=== PATIENT | female | born 1945 | race Caucasian/White ===

== ENCOUNTER 2024-01-21 06:52 | Inpatient (IN) ==
--- NOTE | 2023-12-23 11:21 | PAT Medication Instructions ---
Medication Instructions Date of Service December 23, 2023 Home Medications Medication Instructions Recorded Flutter Valve #1 ea 02/14/21 ProAir HFA 90 mcg/actuation 2 puff inhalation Q4H PRN 04/27/23 aerosol inhaler (albuterol sulfate) shortness of breath or wheezing #25.5 grams tiotropium bromide 2.5 2 puff inhalation QPM #4 grams 04/27/23 mcg/actuation mist for inhalation (Spiriva Respimat) cholecalciferol (vitamin D3) 25 mcg (1,000 unit) capsule 1,000 units PO QPM levothyroxine 88 mcg tablet (Synthroid) 88 mcg PO QAM lorazepam 1 mg tablet (Ativan) 1 mg PO Q8H PRN metformin 500 mg tablet 1,000 mg PO BID simvastatin 20 mg tablet 20 mg PO QPM theophylline 400 mg tablet,extended release 24 hr 400 mg PO BID calcium carbonate 600 mg-vitamin D3 10 mcg (400 unit) tablet 1 tab PO BID ondansetron HCl 4 mg tablet (Zofran) 4 mg PO QID PRN lisinopril 40 mg tablet 40 mg PO QAM insulin glargine 100 unit/mL (3 mL) subcutaneous pen (Lantus Solostar U-100 Insulin) 20 unit subcut QAM insulin lispro 100 unit/mL subcutaneous cartridge (Humalog U-100 Insulin) 1 sliding scale dose subcut ProAir HFA 90 mcg/actuation aerosol inhaler (albuterol sulfate) 2 puff inhalation Q4H PRN tiotropium bromide 2.5 mcg/actuation mist for inhalation (Spiriva Respimat) 2 puff inhalation QPM empagliflozin 10 mg tablet (Jardiance) 10 mg PO QAM STOP 3 days before surgery empagliflozin 10 mg tablet (Jardiance) 10 mg PO QAM STOP taking 48 hours before surgery theophylline 400 mg tablet,extended release 24 hr 400 mg PO BID DO NOT take the morning of surgery metformin 500 mg tablet 1,000 mg PO BID calcium carbonate 600 mg-vitamin D3 10 mcg (400 unit) tablet 1 tab PO BID lisinopril 40 mg tablet 40 mg PO QAM insulin lispro 100 unit/mL subcutaneous cartridge (Humalog U-100 Insulin) 1 sliding scale dose subcut Take morning of surgery With a small sip of water, OTHERWISE NOTHING TO EAT OR DRINK AFTER MIDNIGHT: levothyroxine 88 mcg tablet (Synthroid) 88 mcg PO QAM lorazepam 1 mg tablet (Ativan) 1 mg PO Q8H PRN(if needed) ondansetron HCl 4 mg tablet (Zofran) 4 mg PO QID PRN(if needed) ProAir HFA 90 mcg/actuation aerosol inhaler (albuterol sulfate) 2 puff inhalation Q4H PRN(use if needed; please bring with you to hospital day of surgery if possible) Take evening before surgery cholecalciferol (vitamin D3) 25 mcg (1,000 unit) capsule 1,000 units PO QPM lorazepam 1 mg tablet (Ativan) 1 mg PO Q8H PRN(if needed) ondansetron HCl 4 mg tablet (Zofran) 4 mg PO QID PRN(if needed) ProAir HFA 90 mcg/actuation aerosol inhaler (albuterol sulfate) 2 puff inhalation Q4H PRN(if needed) metformin 500 mg tablet 1,000 mg PO BID simvastatin 20 mg tablet 20 mg PO QPM calcium carbonate 600 mg-vitamin D3 10 mcg (400 unit) tablet 1 tab PO BID insulin lispro 100 unit/mL subcutaneous cartridge (Humalog U-100 Insulin) 1 sliding scale dose subcut tiotropium bromide 2.5 mcg/actuation mist for inhalation (Spiriva Respimat) 2 puff inhalation QPM Insulin Dependent Diabetic Patients * Test your blood sugar the morning of surgery * If Blood Sugar is GREATER THAN 150, take HALF of your regular dose of: insulin glargine 100 unit/mL (3 mL) subcutaneous pen (Lantus Solostar U-100 Insulin). * If Blood Sugar is LESS THAN 150, DO NOT TAKE ANY: insulin glargine 100 unit/mL (3 mL) subcutaneous pen (Lantus Solostar U-100 Insulin). Other Notes If you have any questions please call us at [phone] or [phone] or [phone] or [phone]
--- NOTE | 2023-12-29 15:25 | Anesthesiology Consultation ---
Date of Service December 29, 2023 Assessment & Plan (1) Encounter for pre-operative examination: - check BSG am DOS. - [facility] PCP pre-operative evaluation 12/30/23. Optimization form and testing to be faxed to PCP: "...yes patient is medically cleared for surgery..." - Outpatient joint assessment: Patient is currently scheduled for inpatient pathway. If re-evaluated and patient/surgeon requests outpatient pathway, patient is not recommended candidate for outpatient joint program from anesthesia standpoint. Chart Review Chart Review: Acceptable Risk for Surgery and Patient seen in Pre Admission Testing Teaching & Discussion Pre-Anesthesia Teaching/Discussion Notes: Instructed NPO after midnight before surgery, except medications with 15 cc of water. Medication instructions provided according to the PAT guidelines. History Surgery Operation Date: 01/21/24 10:00 Proposed Procedures p Left Total Hip Arthroplasty - Nestor Rick MD Height/Weight Height: 5 ft 1 in Weight: 55.4 kg Allergies Allergy/AdvReac Type Severity Reaction Status Date / Time No Known Allergies Allergy Verified 09/16/22 14:05 Medications Home Medications Medication Instructions Recorded Confirmed Last Taken cholecalciferol (vitamin D3) 25 1,000 units PO QPM 05/09/19 12/15/23 07/12/20 22:00 mcg (1,000 unit) capsule levothyroxine 88 mcg tablet 88 mcg PO QAM 05/09/19 12/15/23 07/13/20 06:30 (Synthroid) lorazepam 1 mg tablet (Ativan) 1 mg PO Q8H PRN Anxiety 05/09/19 12/15/23 Unknown metformin 500 mg tablet 1,000 mg PO BID 05/09/19 12/15/23 07/12/20 17:30 simvastatin 20 mg tablet 20 mg PO QPM 05/09/19 12/15/23 07/12/20 22:00 theophylline 400 mg 400 mg PO BID 05/09/19 12/15/23 07/12/20 22:00 tablet,extended release 24 hr calcium carbonate 600 mg-vitamin 1 tab PO BID 10/17/19 12/15/23 07/12/20 22:00 D3 10 mcg (400 unit) tablet ondansetron HCl 4 mg tablet 4 mg PO QID PRN Nausea 06/11/20 12/15/23 07/12/20 03:00 (Zofran) Flutter Valve #1 ea 02/14/21 09/16/22 Unknown lisinopril 40 mg tablet 40 mg PO QAM 01/21/22 12/15/23 Unknown insulin glargine 100 unit/mL (3 20 unit subcut QAM 09/16/22 12/15/23 Unknown mL) subcutaneous pen (Lantus Solostar U-100 Insulin) insulin lispro 100 unit/mL 1 sliding scale dose subcut 09/16/22 12/15/23 Unknown subcutaneous cartridge (Humalog USEASDIRECTD U-100 Insulin) ProAir HFA 90 mcg/actuation 2 puff inhalation Q4H PRN 04/27/23 12/15/23 Unknown aerosol inhaler (albuterol sulfate) shortness of breath or wheezing #25.5 grams tiotropium bromide 2.5 2 puff inhalation QPM #4 grams 04/27/23 12/15/23 Unknown mcg/actuation mist for inhalation (Spiriva Respimat) empagliflozin 10 mg tablet 10 mg PO QAM 12/15/23 12/15/23 Unknown (Jardiance) Past Medical History Medical History History of blood transfusion after childbirth Pancreatic mass hx- unsure, states "went away" COPD (chronic obstructive pulmonary disease) controlled w/ daily inhaler use-uses albuterol inhaler daily average 3-4; lost to f/u with pulmonology Osteoporosis Arthritis GERD (gastroesophageal reflux disease) controlled, stable per pt Hypothyroidism h/o goiter treated with radiation per patient Diabetes mellitus, type 2 IDDM Multiple sclerosis dx [id number] with PCP Hypertension controlled, stable per pt Hyperlipidemia Patient denies h/o stroke, seizures, heart attack, heart failure, or blood clots/DVTs. Exercise / Class Metabolic Activity III < 4 Walking/Shop/Light housework (flat surfaces with leg dysfunction-denies chest discomfort or shortness of breath with usual activities) Past Surgical History Surgical History Hx of colonoscopy History of tooth extraction History of dilatation and curettage History of bilateral tubal ligation History of esophagogastroduodenoscopy (EGD) multiple Past Anesthesia History No Hx of Anesthesia Complications and No Family Hx of Anesthesia Complications History of PONV No Hx of PONV and Hx of Motion Sickness Social History Smoking Status: Former smoker Do You Dip or Chew Tobacco: No Smoking End Date: quit 2004 Hx Alcohol Use: No Hx Substance Use: No substance use type: does not use Review of Systems Patient denies chest pain, shortness of breath, dyspnea on exertion, snoring, witnessed apneas, fever, chills, cough, wheezing, or palpitations. Physical Exam Vital Signs Vitals BP 157/97 (patient states she is anxious in clinical settings) P 75 TEMP 98.1 SP02 96% on RA RESP 18 Physical Patient resting comfortably in chair in no acute distress, alert and oriented, responding appropriately throughout visit Full cervical extension range of motion without pain TMD 3.5 finger breadths Mallampati Score 2 Dentition: full upper removable plate, denies chipped or loose teeth, caps/crowns, implants or bridges Lungs: normal respiratory effort. Good air movement, clear throughout to auscultation, no adventitious breath sounds Cardiac: regular rate and rhythm, no murmurs noted Carotid arteries: negative bruit bilat Lab Results Anesthesia Preop Results Results Anesthesia Widget: WBC 6.65 K/ul (4.8-10.8) 12/29/23 Hgb 13.6 g/dl (12.0-16.0) 12/29/23 Hct 42.7 % (37.0-47.0) 12/29/23 Plt 190 K/uL (130-400) 12/29/23 Na 140 mmol/L (136-145) 12/29/23 K 3.9 mmol/L (3.5-5.1) 12/29/23 Cl 107 mmol/L (98-107) 12/29/23 CO2 26 mmol/L (21-32) 12/29/23 BUN 19 mg/dl (6-23) 12/29/23 Creat 0.78 mg/dl (0.6-1.2) 12/29/23 Glucose Level 66 mg/dl (70-99(Fasting)) L 12/29/23 PT 10.6 Seconds (9.0-12.0) 12/29/23 INR 1.0 (0.9-1.1) 12/29/23 Urine Color Yellow 12/29/23 Urine Appearance Clear (Clear) 12/29/23 Urine pH 5.5 (4.5-7.5) 12/29/23 Urine Specific [place] 1.029 (1.000-1.030) 12/29/23 Urine Protein Negative (Negative) 12/29/23 Urine Glucose (UA) 3+ (Negative) H 12/29/23 Urine Ketones Negative (Negative) 12/29/23 Urine Blood Negative (Negative) 12/29/23 Urine Nitrite Negative (Negative) 12/29/23 Urine Bilirubin Negative (Negative) 12/29/23 Urine Urobilinogen Negative (Negative) 12/29/23 Urine Leukocyte Esterase Trace (Negative) H 12/29/23 Urine WBC (Auto) 11-20 /hpf (0-5) H 12/29/23 Urine RBC (Auto) 0-2 /hpf (0-2) 12/29/23 Urine Hyaline Casts (Auto) 0-2 /lpf (0-2) 12/29/23 Urine Epithelial Cells (Auto) 6-10 /hpf (0-2) H 12/29/23 Urine Bacteria (Auto) 1+ (None Seen) H 12/29/23 Blood Type O Positive 12/29/23 Antibody Screen NEGATIVE 12/29/23 Testing Laboratory Results 12/01/23 A1c: 7.5% Surgeon's office made aware of abnormal UA. Electrocardiogram Date: 12/29/23 NSR, rate 86 bpm Left atrial enlargement
--- NOTE | 2023-12-30 15:00 | History & Physical Report ---
Date of Service December 30, 2023 Assessment & Plan (1) Osteoarthritis of left hip: Plan: PRE-OP Diagnosis: Left hip osteoarthritis Planned Procedure: Left total hip arthroplasty Plan: Patient is scheduled to undergo this procedure at the [facility] with a 23-hour observation admission with Dr. Rick on , January 21, 2024. Risks and complications of the procedure such as: Infection, bleeding, pain, scarring, nerve blood vessel damage, weakness, wound problems, stiffness, incomplete relief of symptoms, hardware failure, hardware loosening, wear, fracture, tendon or ligament injury, dislocation, leg length inequality, blood clots, Embolism, heart attack, stroke and were explained to the patient at her visit today. Informed consent to perform the procedure was obtained. Patient has an appointment to meet with anesthesia later this morning and while there will obtain CBC with differential, PT/INR, blood type and screen, urinalysis, urine culture and sensitivity, EKG, and a nasal culture for MRSA. Patient's metabolic panel and hemoglobin A1c are both up-to-date. Her most recent A1c from November 30 was 7.5. Patient will also need preoperative medical clearance from their primary care provider who she is scheduled to see tomorrow. Patient states that she plans on going to inpatient rehab facility for the first 1 to 2 weeks postoperatively and then would like to transition to in-home physical therapy for an additional 2 to 4 weeks because she does not drive and has no one to take her to outpatient rehab. Patient will need a walker, raised toilet seat, shower chair and a hip kit. During today's visit we reviewed the total hip packet as well as precautions. We discussed discharge planning from the hospital. We discussed lectures offered by [facility] in regards to joint replacement surgery via Zoom. I advised the patient that upon discharge from hospital we will prescribe a narcotic pain medication and anti-inflammatory. Patient will also be on an 81 mg aspirin twice daily for blood clot prevention. Patient will be scheduled for 2-week postoperative follow-up visit with Chandan on January 27. This chart was completed utilizing [employer] voice recognition software. Grammatical errors, random word insertions, pronoun errors, and in complete sentences are an occasional consequence of the system. Any questions or concerns about the content, text, or information contained within the body of this dictation should be addressed directly to the physician for clarification. History of Present Illness Chief Complaint: Chief Complaint: Left hip pain Primary Care Provider: Nicho Jones History of Present Illness (including history relevant to procedure): This 78-year-old female presents the clinic today for her preoperative history and physical. States she has not been able to walk due to her hip pain and has recently been using a wheelchair to navigate.. She has had hip pain for the last few years with no specific injury. The pain is located on the posterior lateral into the groin and down the thigh. She takes Tramadol, which makes her able to sleep at night. She denies numbness or tingling. She has had a cortisone injection in the hip which did not offer relief. Patient is electing to proceed with surgical intervention at this time. Review Of Systems: A 12 point review of systems is performed is unremarkable except for those things stated in the HPI and past medical history. Past Medical History: Problems: Degenerative joint disease of left hip Left knee DJD Hypertension Hyperlipidemia Asthma COPD Chronic cough Diabetes Hypothyroidism Procedure History Procedure Procedure Date Comments Carpal tunnel release Tubal ligation Allergies and Sensitivities: No Known Medication Allergies Current Home Meds: (Last Updated 12/28 14:00) LORazepam (LORazepam 1 mg oral tablet) 30 tab Responsible Provider: ALYSON JACKSON [place] 07/15 13:55 albuterol (Albuterol (Eqv-ProAir HFA) 90 mcg/inh inhalation aerosol) 25 unknown unit Responsible Provider: ESTEPHANIA OWEN [place] 07/15 13:55 citalopram (citalopram 10 mg oral tablet) 30 tab Responsible Provider: ALYSON JACKSON [place] 07/15 13:54 empagliflozin (Jardiance 10 mg oral tablet) 10 mg PO Daily insulin aspart (Insulin Aspart FlexPen 100 units/mL injectable solution) 15 unknown unit Responsible Provider: MARNIE ROD [place] 07/15 13:54 insulin glargine (Lantus Solostar Pen 100 units/mL subcutaneous solution) 15 unknown unit Responsible Provider: JACKSON MCDONOUGH [facility] 07/15 13:54 levothyroxine (levothyroxine 88 mcg (0.088 mg) oral tablet) 90 tab Responsible Provider: MARNIE ROD [place] 07/15 13:54 lisinopril (lisinopril 40 mg oral tablet) 90 tab Responsible Provider: ALYSON JACKSON [place] 07/15 13:54 metFORMIN (metFORMIN 500 mg oral tablet) 360 tab Responsible Provider: JACKSON MCDONOUGH [place] 07/15 13:54 simvastatin (simvastatin 20 mg oral tablet) 90 tab Responsible Provider: ALYSON JACKSON [place] 07/15 13:54 sodium hyaluronate (Euflexxa 10 mg/mL intra-articular solution) 20 mg intra- articular q7days 3 syringes for L knee. Please ship to physician's office: [id number] [place] [id number] theophylline (theophylline 300 mg oral tablet, extended release) 270 tab Responsible Provider: ALYSON JACKSON [place] 07/15 13:54 traMADol (traMADol 50 mg oral tablet) 50 mg PO bid 14 tab Responsible Provider: ALYSON JACKSON 11/17 08:49 unlisted medication 100 unknown unit Responsible Provider: HILDA WANG [place] 07/15 13:55 Initial Wt: 12/28 56.7 kg 125 lb Allergies Allergy/AdvReac Type Severity Reaction Status Date / Time No Known Allergies Allergy Verified 09/16/22 14:05 Home Medications Medication Instructions Recorded Confirmed Type cholecalciferol (vitamin D3) 25 1,000 units PO QPM 05/09/19 12/15/23 History mcg (1,000 unit) capsule levothyroxine 88 mcg tablet 88 mcg PO QAM 05/09/19 12/15/23 History (Synthroid) lorazepam 1 mg tablet (Ativan) 1 mg PO Q8H PRN Anxiety 05/09/19 12/15/23 History metformin 500 mg tablet 1,000 mg PO BID 05/09/19 12/15/23 History simvastatin 20 mg tablet 20 mg PO QPM 05/09/19 12/15/23 History theophylline 400 mg 400 mg PO BID 05/09/19 12/15/23 History tablet,extended release 24 hr calcium carbonate 600 mg-vitamin 1 tab PO BID 10/17/19 12/15/23 History D3 10 mcg (400 unit) tablet ondansetron HCl 4 mg tablet 4 mg PO QID PRN Nausea 06/11/20 12/15/23 History (Zofran) Flutter Valve #1 ea 02/14/21 09/16/22 Rx lisinopril 40 mg tablet 40 mg PO QAM 01/21/22 12/15/23 History insulin glargine 100 unit/mL (3 20 unit subcut QAM 09/16/22 12/15/23 History mL) subcutaneous pen (Lantus Solostar U-100 Insulin) insulin lispro 100 unit/mL 1 sliding scale dose subcut 09/16/22 12/15/23 History subcutaneous cartridge (Humalog USEASDIRECTD U-100 Insulin) ProAir HFA 90 mcg/actuation 2 puff inhalation Q4H PRN 04/27/23 12/15/23 Rx aerosol inhaler (albuterol sulfate) shortness of breath or wheezing #25.5 grams tiotropium bromide 2.5 2 puff inhalation QPM #4 grams 04/27/23 12/15/23 Rx mcg/actuation mist for inhalation (Spiriva Respimat) empagliflozin 10 mg tablet 10 mg PO QAM 12/15/23 12/15/23 History (Jardiance) Past Med/Surg History Problem List (Updated 12/30/23 @ 14:59 by Matthieu Adkins PA-C) Osteoarthritis of left hip Chronic obstructive pulmonary disease History of tobacco use Edema Pancreatic mass Encounter for pre-operative examination SOBOE (shortness of breath on exertion) Chronic obstructive pulmonary disease (Chronic) F/U EMILY ALCAZAR- NO ISSUES PER MOST RECENT PULM APPT Medical History History of blood transfusion after childbirth Pancreatic mass hx- unsure, states "went away" COPD (chronic obstructive pulmonary disease) controlled w/ daily inhaler use-uses albuterol inhaler daily average 3-4; lost to f/u with pulmonology Osteoporosis Arthritis GERD (gastroesophageal reflux disease) controlled, stable per pt Hypothyroidism h/o goiter treated with radiation per patient Diabetes mellitus, type 2 IDDM Multiple sclerosis dx [id number] with PCP Hypertension controlled, stable per pt Hyperlipidemia Surgical History Hx of colonoscopy History of tooth extraction History of dilatation and curettage History of bilateral tubal ligation History of esophagogastroduodenoscopy (EGD) multiple Social History Smoking Status: Former smoker Tobacco Type: Cigarettes Age Started Using Tobacco: 24; Age Quit Using Tobacco: 58; packs per day: 1; Second Hand Exposure: No; Do You Dip or Chew Tobacco: No; Hx Alcohol Use: No Hx Substance Use: No Preferred Language: Colombian Communication Ability: Effective 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 Extraocular movements are intact Throat: Posterior oropharynx clear with absence of edema, erythema or exudate. Patient has partial dentures in the upper jaw dentition is appropriate in the lower. Cardiac: Regular rate and rhythm with no murmurs or gallops appreciated Lungs: Clear to auscultation with diminished airflow on expiration. There is no wheezing or rhonchi appreciated Abdomen: Nonobese, nondistended, nontender with NABS Extremities: Left hip; flexion is limited to 105 degrees, internal rotation to 5 degrees external rotation to 40 degrees. Straight leg raise test causes referred pain in the groin, Stinchfield test causes referred pain to the groin. Scour and impingement tests are both positive. Patient has tenderness to palpation in the groin area and over the posterior lateral aspect of the hip. Logroll test causes referred pain to the groin as well. Patient is neur ovascularly intact in the left lower extremity. Neuro: Cranial nerves II through XII are intact with no motor or sensory deficit Skin: Normal in appearance with no open skin areas or discharge Results & Data Diagnostic Findings Studies (relevant to the procedure): x-rays done in 12/2022, AP pelvis and frogleg lateral of the left hip which shows arthritis in the left hip. There is decrease cartilage space that is near bone on bone.
[~2024-01-21 06:52] MED LIST: BUPIVACAINE 0.5 % 5 MG/1 ML PF 10ML VIAL ONE
[2024-01-21] MEDS: CeleBREX 200 MG CAP PO SCH (07:54)
[2024-01-21] MEDS: LR 500ML BOLUS, THEN 15ML/HR IV SCH (07:54)
[2024-01-21] MEDS: ACETAMINOPHEN 500 MG TAB PO SCH ×2 (07:54→13:55)
[2024-01-21] MEDS: Scopolamine 1 MG TDSY TD SCH (07:54)
[2024-01-21] MEDS: traMADol HCL 50 MG TABLET PO SCH (07:55)
[2024-01-21] MEDS: FAMOTIDINE 20 MG TAB PO SCH (07:55)
[2024-01-21] MEDS ORDERED: HYDROmorphone INJ 1 MG/ML SYRINGE IV PRN (08:13)
[2024-01-21] MEDS ORDERED: ATROPINE SULFATE 0.1 MG/ML 10ML SYR IV PRN (08:13)
[2024-01-21] MEDS ORDERED: ePHEDrine sulfate 50 MG/ML AMP IV PRN (08:13)
[2024-01-21] MEDS ORDERED: ONDANSETRON INJ 2 MG/ML 2 ML VIAL IV PRN (08:13)
[2024-01-21] MEDS ORDERED: fentaNYL citrate PF 100 MCG/2 ML VIAL ONE (08:23)
--- NOTE | 2024-01-21 08:33 | History & Physical Bridge Note ---
Date of Service January 21, 2024 History & Physical Bridge Note I have examined the patient, reviewed the History & Physical and in the interval since the performance of the History & Physical I have noted the following changes of clinical significance: no changes noted
[2024-01-21] MEDS: TRANEXAMIC ACID 1,000 MG **IV Pre-op IV SCH (08:36)
[2024-01-21] MEDS: ceFAZolin 2000MG 2,000 MG/15 ML SYR IV SCH ×2 (09:10→17:30)
[2024-01-21] MEDS ORDERED: LIDOCAINE 2% 2 ML VIAL/AMP(20MG/ML) INFIL ONE (10:09)
[2024-01-21] MEDS: ROPIVACAINE 0.5% HCL/PF 246 MG, Ketorolac (*for OR use only*) 30 MG, EPINEPHrine 30MG/3... INFIL SCH (10:09)
[2024-01-21] MEDS ORDERED: PROPOFOL IV EMULSION 10 MG/ML 20 ML VIAL IV ONE (10:09)
[2024-01-21] MEDS ORDERED: PHENYLEPHRINE 100MCG/ML 10ML SYR IV ONE (10:09)
[2024-01-21] MEDS: ORTHO JOINT ANESTHETIC ONE (10:10)
[2024-01-21] MEDS: TRANEXAMIC ACID 1,000 MG **IV Intra-op IV SCH (10:25)
--- NOTE | 2024-01-21 10:46 | Operative Report ---
Post Operative Report Pre & Post Diagnosis Operation Date: 01/21/24 08:50 Pre-Op Diagnosis: Left Hip Osteoarthritis Post-Op Diagnosis: Left Hip Osteoarthritis, gluteus medius partial tear, bony excrescence of femur vastus ridge, pseudomembrane in greater trochanteric space I identified the patient and participated in the time-out.: Yes Procedure Operation Date: 01/21/24 08:50 Actual Procedures p Left Total Hip Arthroplasty, excision of bony excrescence and pseudomembrane in the greater trochanteric space- Nestor Rick MD Surgeon Nestor Rick MD Refrigeration Unit Repairer GIBRAN Adkins PA-C. No resident or fellow was available to assist. Estimated Blood Loss 100 Findings Consistent with Post-Op Diagnosis Fluids 1000 cc crystalloid Specimens Left femoral head Anesthesia Type Spinal MAC Complications none Disposition Disposition: Recovery Room Indications 78-year-old female, with left hip pain refractory to conservative management. X-rays demonstrate severe osteoarthritis with joint space loss and collapse of the superior femoral head. She is therefore a candidate for total hip replacement. I do long discussion with the patient and her family about the risks and benefits of surgery, alternatives to surgery, and expected outcomes. After reviewing all these they elected to proceed with surgery. All questions were answered. Informed consent was signed. Description of Procedure Patient was identified in the preoperative holding area where the surgical site, left hip, was marked. A spinal anesthetic was placed, then the patient was brought back to the main operating room, placed in the operating table and moved into the lateral decubitus position. Axillary roll was placed. All bony prominences were padded. Perioperative antibiotics and tranexamic acid 1 gram IV were administered. The operative extremity was prepped and draped in the normal sterile fashion. Prior to incision a multidisciplinary timeout was called. All in the room were in agreement. We began by making an incision for a posterior approach to the hip. We dissected down through subcutaneous tissues to the level of the fascia. The f ascia was incised in line with the incision. There was some clear synovial type fluid underneath the fascia which was evacuated with suction. Charnley bow was placed. Inspection of the hip abductors revealed a partial tear of the gluteus medius involving approximately 60% of the gluteus medius. Bony excrescence was noted along the vastus ridge. These were removed with a rongeur back to a flat surface without disrupting the underlying intact abductor tendon. Pseudomembrane covering the potential greater trochanteric space was removed with electrocautery. Next, fatty tissue was reflected posteriorly off the back of the greater trochanter to expose the piriformis and short external rotators of the hip. Quadratus femoris was taken off the femur subperiosteally. The piriformis and short external rotators were dissected off the posterior aspect of the hip. A box cut was made in the capsule. Inferior hip capsule was released off the femur. The femoral head was dislocated. The femoral neck cut was made at our preoperative template. The acetabulum was then exposed. The labrum was sharply excised. Contents of the cotyloid fossa were removed with electrocautery. We then began reaming at a size 8 mm less than our preoperative template. We reamed up by 1 [address] the way up to a size 50 mm cup. This gave us good bleeding cancellus bone circumferentially. The a cetabulum was then irrigated out and dried. The real [place] Gription cup was then impacted down into position with 45 degrees of lateral opening and 25 degrees of anteversion. Two cancellous bone screws were placed up into the ilium. Excellent fixation was obtained. [place] hole eliminator was placed. A metal liner for a dual mobility head was then impacted into the shell. Blank taper engaged appropriately. Next we turned our attention to the femur. The lateral neck was removed with a box osteotome. Intramedullary guide was used to establish the intramedullary canal. We then broached all the way up to a size 5. We began trialing with a standard offset neck and a +4 head. Hip was reduced. Leg lengths were symmetric. The hip was stable in extension and external rotation, and stable in the sleeper position. At 90 degrees of hip flexion the hip could be internally rotated 80 degrees before levering out of the cup. I was very happy with the stability exam. Therefore the hip was dislocated and the femoral trial was removed. The femoral canal was irrigated and dried. The real Actis femoral stem was opened up. This was impacted down into position. The dual mobility femoral head was opened up, assembled on the back table, and gently impacted down onto the trunnion. The hip was atraumatically reduced. Another 1 gram of IV tranexamic acid was started prior to closure. The wound was irrigated out with sterile Betadine solution. The periarticular injection cocktail was then placed. The short external rotators, piriformis, and posterior capsule were repaired through drill holes in the greater trochanter using #2 Vicryl. The fascia was run with a looped #1 PDS. The subcutaneous layer was closed with #1 PDS. The dermal layer was closed with 2-0 Vicryl. Zip line was used for the skin followed by a Silverlon dressing. A compressive dressing was then placed. The patient was then rolled supine. Leg lengths were rechecked and were symmetric. An abduction pillow was placed. Sedation was lifted and the patient was transferred to the recovery room in stable condition. Summary of implants: Depuy [place] Gription Acetabular Shell Sector Cup, 50 mm outer diameter 2 [place] Cancellous bone screws, 40 and 20 mm in length respectively [place] hole eliminator [place] dual mobility metal liner, 43 mm inner diameter DePuy Actis collared cementless Femoral stem, 12/14 taper, size [] 43/22 bimentum Ultrex polyethylene outer head 22+4 metal inner femoral head Postoperative course: Patient will be admitted overnight from the recovery room. Patient will be weightbearing as tolerated with posterior hip precautions. Aspirin for DVT prophylaxis I attest to the content of the Intraoperative Record and any orders documented therein. Any exceptions are noted below.
--- NOTE | 2024-01-21 10:48 | Operative Report ---
Post Operative Report Pre & Post Diagnosis Operation Date: 01/21/24 08:50 Pre-Op Diagnosis: Left Hip Osteoarthritis Post-Op Diagnosis: Left Hip Osteoarthritis I identified the patient and participated in the time-out.: Yes Procedure Operation Date: 01/21/24 08:50 Actual Procedures p Left Total Hip Arthroplasty(Left) - Nestor Rick MD Surgeon Nestor Rick MD Technical Producer GIBRAN Adkins PA-C. No resident or fellow was available to assist. Estimated Blood Loss 100 Findings Consistent with Post-Op Diagnosis Specimens femoral head Description of Procedure I was present during the entire case assisting with positioning, prepping, draping, wound retraction, wound closure, dressing and abduction pillow placement. No fellow present. Please see Dr. Rick procedure note for specifics of the case. I attest to the content of the Intraoperative Record and any orders documented therein. Any exceptions are noted below.
[2024-01-21] MEDS ORDERED: ALUMINUM/MAGNESIUM SUSP 30 ML UDC PO PRN (10:49)
[2024-01-21] MEDS ORDERED: NALOXONE HCL 0.4 MG/1 ML VIAL/CARP IV PRN (10:49)
[2024-01-21] MEDS ORDERED: bisacodyL 10 MG SUPP PR PRN (10:49)
[2024-01-21] MEDS ORDERED: METOCLOPRAMIDE HCL INJ 5 MG/ML 2 ML VIAL IV PRN (10:49)
[2024-01-21] MEDS ORDERED: PHARMACY GLYCEMIC MGMT CONSULT PRN (10:49)
[2024-01-21] MEDS ORDERED: diphenhydrAMINE 50 MG/ML VIAL IV PRN (10:49)
[2024-01-21] MEDS ORDERED: MAGNESIUM HYDROXIDE SUSP 30 ML UDC PO PRN (10:49)
[2024-01-21] MEDS ORDERED: ALBUTEROL HFA 8 GM INHALER INH PRN (10:52)
[2024-01-21] MEDS ORDERED: INFLUENZA VACCINE IM SCH (11:00)
[2024-01-21] MEDS ORDERED: GLUCAGON FOR INJ 1 MG VIAL IM PRN (11:15)
[2024-01-21] MEDS ORDERED: GLUCOSE 40% GEL 15 GM TUBE PO PRN (11:15)
[2024-01-21] MEDS ORDERED: DEXTROSE 50% 50 ML SYRINGE IV PRN (11:15)
[2024-01-21] MEDS ORDERED: GLUCOSE 10 TAB/TUBE PO PRN (11:15)
--- NOTE | 2024-01-21 11:24 | Pharmacy Report ---
Pharmacy Glycemic Short Note 2 - Date of Service January 21, 2024 - Glycemic Short BSG Results (Last 24 hours): 01/21/24 01/21/24 07:37 10:57 POC Glucose 70 81 OUTPATIENT ANTIDIABETIC REGIMEN: * Lantus 20 units SC AM * Humalog SSI * Metformin 1000 mg PO BID * Jardiance 25 mg PO AM * HbA1c: 7.5% (12/01/23) ASSESSMENT: * 78 yo F admitted on 01/21/24 postoperatively following a left total hip arthroplasty. Pharmacy has been consulted to assist with inpatient glycemic management. Patient is a Type 2 diabetic as an outpatient. Please refer to outpatient regimen and most recent HbA1c above. * Preop BSG was 70 mg/dL. Postop BSG was 81 mg/dL. Ordered a T1DM diet, will follow to see if patient tolerates postoperatively. * No steroids given periop and none ordered ongoing. * Will start Novolog based on weight/stress of 3. Given BSGs, will hold off on any basal insulin for today. Reassess basal needs in the AM if patient starts eating better. PLAN FOR INPATIENT GLYCEMIC CONTROL: * Hold outpatient oral diabetes medications * Basal insulin * Hold * Bolus insulin * NovoLog per scale ACHS or Q6hrs while NPO * Goal Range: Low 110 mg/dL - High 140 mg/dL * Correction Factor: 30 mg/dL/unit * Nutritional / Prandial insulin per carb ratio of 1 unit per 10 grams CHO consumed
--- OUTSIDE RECORDS SUMMARY | 2024-01-21 11:46 | External Medical Summary | Continuity of Care Document ---
Author Name Unknown Organization [id number] Address [address] [place] [id number] Care Team Providers Care Mechanical Energy Engineer Name Role Phone Muriel Carroll Primary Care Physician [phone] Encounter [facility] [id number] Date(s): 12/29/23 - 12/29/23 [facility] [address] [place], [place] [id number] [facility] [address] [place] [id number] Encounter Diagnosis Preop examination(Discharge Diagnosis) - 12/29/23 Degenerative joint disease of left hip(Discharge Diagnosis) - 12/29/23 Discharge Disposition: Home or Self Care Attending Physician: MARIAM Adkins Dennis Referring Physician: MD Merline, Nestor Bowser Allergies, Adverse Reactions, Alerts No Known Medication Allergies Medications Albuterol (Eqv-ProAir HFA) 90 mcg/inh inhalation aerosol Start: 07/15/23 1:55:00 PM EST, 25 unknown unit Start Date: 07/15/23 Status: Ordered citalopram 10 mg oral tablet Start: 07/15/23 1:54:00 PM EST, 30 tab Start Date: 07/15/23 Status: Ordered Euflexxa 10 mg/mL intra-articular solution Start: 07/15/23 3:15:00 PM EST, 20 mg =, intra-articular, q7days, Disp# 6 mL, Refills: 0, 3 syringesfor L knee. Please ship to physician's office: [address] [place] [address]. [address] [address], Note to Pharmacy: L KNEE DJD M17.12, Pharmacy: [facility] (Specialty) [facility] Start Date: 07/15/23 Stop Date: 08/05/23 Status: Ordered Insulin Aspart FlexPen 100 units/mL injectable solution Start: 07/15/23 1:54:00 PM EST, 15 unknown unit Start Date: 07/15/23 Status: Ordered Jardiance 10 mg oral tablet Start: 10/06/23 10:42:00 AM EDT, 1 tab, PO, Daily, Disp# 30 tab Start Date: 10/06/23 Status: Ordered Lantus Solostar Pen 100 units/mL subcutaneous solution Start: 07/15/23 1:54:00 PM EST, 15 unknown unit Start Date: 07/15/23 Status: Ordered levothyroxine 88 mcg (0.088 mg) oral tablet Start: 07/15/23 1:54:00 PM EST, 90 tab Start Date: 07/15/23 Status: Ordered lisinopril 40 mg oral tablet Start: 07/15/23 1:54:00 PM EST, 90 tab Start Date: 07/15/23 Status: Ordered LORazepam 1 mg oral tablet Start: 07/15/23 1:55:00 PM EST, 30 tab Start Date: 07/15/23 Status: Ordered metFORMIN 500 mg oral tablet Start: 07/15/23 1:54:00 PM EST, 360 tab Start Date: 07/15/23 Status: Ordered simvastatin 20 mg oral tablet Start: 07/15/23 1:54:00 PM EST, 90 tab Start Date: 07/15/23 Status: Ordered theophylline 300 mg oral tablet, extended release Start: 07/15/23 1:54:00 PM EST, 270 tab Start Date: 07/15/23 Status: Ordered traMADol 50 mg oral tablet Start: 11/18/23 8:48:00 AM EDT, 1 tab, PO, bid, Disp# 30 tab, Refills: 0, 14 tab, Pharmacy: [facility] Start Date: 11/18/23 Status: Ordered unlisted medication Start: 07/15/23 1:55:00 PM EST, 100 unknown unit Start Date: 07/15/23 Status: Ordered Mental Status 12/29/23 Barriers to Learning one year None evide nt Mandatory Health Literacy Documentation Yes Health Literacy Communication Barriers N ever Primary Language Mohawk Problem List Condition Confirmation Course Effective Dates Status Health St atus Informant Degenerative joint disease of left hip Confirmed Active Left knee DJD Confirmed Active Diagnosis Diagnosis Type Effective Dates Health Status Clinical Service Informant Preop examination Discharge Diagnosis 12/29/23 Degenerative joint disease of left hip Discharge Diagnosis 12/29/23 Vital Signs Most recent to oldest [Reference Range]: 1 Height 157.4 cm (12/29/23 2:00 PM) Patient Weight 56.7 kg (12/29/23 2:00 PM) Body Mass Index 22.89 kg/m2 (12/29/23 2:00 PM) Temperature [36.5-37.9 DegC] 36.3 DegC *LOW* (12/29/23 2:00 PM) Respiratory Rate 20 br/min (12/29/23 2:00 PM) Blood Pressure 114/62mmHg (12/29/23 2:00 PM) Cuff Pulse Pressure 52 mmHg (12/29/23 2:00 PM) Social History Social History Type Response Smoking Status Never smoked cigaret lucretia Sex Female Patient Care team information Care Team Personnel Name: MARIAM Carroll, Muriel Frank Position: Referring Member Role: Primary Care Provider Address: Address: [facility] [address] [place] [address]
[2024-01-21] MEDS: LABETALOL HCL IV 5 MG/ML 20ML IV STA (11:47)
[2024-01-21] MEDS: LR 60ML/HR IV SCH (12:48)
[2024-01-21] MEDS: LABETALOL HCL IV 5 MG/ML 20ML IV ONE (12:48)
[2024-01-21] MEDS: SODIUM CHLORIDE 0.9% 1,000 ML IV SCH (12:58)
[2024-01-21] MEDS: KETOROLAC TROMETHAMINE 15 MG/ML VIAL IV SCH (13:24)
[2024-01-21] MEDS: INSULIN ASPART PER UNIT CHARGE SC SCH (13:44)
[2024-01-21] MEDS ORDERED: Nursing to Pharmacy Communication SCH (14:00)
[2024-01-21] MEDS: oxyCODONE HCL IR 5 MG TAB (IMMEDIATE RELEASE) PO PRN (14:12)
--- NOTE | 2024-01-21 14:30 | Anesthesiology Progress Note ---
Date of Service January 21, 2024 Anesthesia Post Procedure Vital Signs Vital Signs: Temp Pulse Pulse Pulse Resp BP BP 01/21/24 13:43 36.6 C 68 17 152/72 H 01/21/24 13:15 37.1 C 76 16 156/76 H 01/21/24 12:45 36.8 C 75 17 157/80 H 01/21/24 12:25 73 22 157/74 H 01/21/24 12:20 60 22 156/72 H 01/21/24 12:10 61 20 149/70 H 01/21/24 12:00 36.5 C 63 20 167/79 H 01/21/24 11:50 78 20 147/73 H 01/21/24 11:47 86 188/93 H 01/21/24 11:40 89 20 188/93 H 01/21/24 11:30 88 18 179/89 H 01/21/24 11:20 89 20 175/88 H 01/21/24 11:10 84 20 164/87 H 01/21/24 11:00 85 18 146/77 H 01/21/24 10:50 82 20 159/82 H 01/21/24 10:48 36.5 C 84 16 155/73 H 01/21/24 08:13 36.9 C 85 16 197/88 H Pulse Ox O2 Del Method O2 Flow Rate 01/21/24 13:43 98 Nasal Cannula 2 01/21/24 13:15 98 Room Air 01/21/24 12:45 96 Nasal Cannula 2 01/21/24 12:25 99 Nasal Cannula 2 01/21/24 12:20 99 Nasal Cannula 2 01/21/24 12:10 99 Nasal Cannula 2 01/21/24 12:00 99 Nasal Cannula 2 01/21/24 11:50 99 Nasal Cannula 2 01/21/24 11:47 01/21/24 11:40 100 Nasal Cannula 2 01/21/24 11:30 100 Nasal Cannula 2 01/21/24 11:20 99 Nasal Cannula 2 01/21/24 11:10 95 Nasal Cannula 2 01/21/24 11:00 95 Room Air 01/21/24 10:50 100 Oxymask 6 01/21/24 10:48 98 Oxymask 6 01/21/24 08:13 96 Room Air Pain Intensity Left Hip: Pain Intensity: 9 Transfer of Care Handoff Completed per policy Notes Mental Status: alert / awake / arousable and participated in evaluation Nausea / Vomiting: adequately controlled Pain: adequately controlled Airway Patency, RR, SpO2: stable & adequate BP & HR: stable & adequate Hydration State: stable & adequate Anesthetic Complications: no major complications apparent and Pt Satisfied with anesthetic care
--- NOTE | 2024-01-21 14:35 | XRay Report ---
SINGLE VIEW PELVIS CLINICAL HISTORY: Postoperative examination. FINDINGS: Postoperative examination. FINDINGS: An AP, portable, supine view of the pelvis is compared to study dated 12/29/2023. The skelet al structures are osteopenic. A bipolar left hip arthroplasty is in the near anatomic alignment. A si ngle cortical lag screw is seen transfixing the acetabular cup. Soft tissue edema and subcutaneous ga s overlying the left hip are expected postsurgical changes. No acute fracture is seen. [id number] te osteoarthritic change is noted in the right hip. There is degenerative sclerosis of the sacroiliac joints. Atherosclerotic calcification is observed in the femoral arteries. IMPRESSION: Expected postoperative findings status post left hip arthroplasty. No acute fracture is s een. Electronically signed by: Sandor Kong M.D. 01/21/2024 2:34 PM
[2024-01-21] MEDS: LANTUS PER UNIT CHARGE SC STA (14:49)
[2024-01-21] MEDS: Scopolamine CHECK PATCH PLACEMENT SCH (16:32)
[2024-01-21] MEDS: CHOLECALCIFEROL 25 MCG (1000 UNITS) TAB PO SCH (20:03)
[2024-01-21] MEDS: DOCUSATE SODIUM 100 MG CAP PO SCH (20:03)
[2024-01-21] MEDS: CALCIUM 600MG + VIT D 400 IU TAB PO SCH (20:03)
[2024-01-21] MEDS: lisinopril 40 MG TAB PO SCH (20:03)
[2024-01-21] MEDS: SIMVASTATIN 20 MG TAB PO SCH (20:04)
[2024-01-21] MEDS: SENNA 8.6 MG TAB PO SCH (20:04)
[2024-01-21] MEDS: UMECLIDINIUM BROMIDE 62.5MCG/BLISTER 7 PUFFS/INHALER INH SCH (20:04)
[2024-01-21] MEDS: THEOPHYLLINE 400 MG EXTENDED REL TAB PO SCH (20:04)
[2024-01-21] MEDS ORDERED: metFORMIN HCL 500 MG TAB PO SCH (21:00)
[2024-01-21] MEDS: HYDROmorphone INJ 0.5 MG/0.5 ML SYR IV PRN (21:00)
[2024-01-22] MEDS: LEVOTHYROXINE SODIUM 88 MCG TABLET PO SCH (06:30)
[2024-01-22] MEDS: ASPIRIN 81 MG ECTAB PO SCH (08:00)
[2024-01-22] MEDS: MULTIVITAMIN TAB PO SCH (08:00)
[2024-01-22] MEDS: CeleBREX 200 MG CAP PO SCH (08:00)
[2024-01-22] MEDS ORDERED: lisinopril 40 MG TAB PO SCH (09:00)
[2024-01-22] MEDS ORDERED: EMPAGLIFLOZIN 10 MG TAB PO SCH (09:00)
[2024-01-22] MEDS ORDERED: NON-FORMULARY MEDICATION (Insulin Glargine [Lantus Solostar U-100 Insulin] 100 unit/mL (3 SQ SCH (09:00)
[2024-01-22] MEDS: LANTUS PER UNIT CHARGE ONE (14:57)
[2024-01-22] MEDS: LANTUS PER UNIT CHARGE SC ONE (14:57)
--- NOTE | 2024-01-22 15:10 | Pharmacy Report ---
Pharmacy Glycemic Short Note 2 - Date of Service January 22, 2024 - Glycemic Short BSG Results (Last 24 hours): 01/21/24 01/21/24 16:24 19:56 POC Glucose 79 102 H OUTPATIENT ANTIDIABETIC REGIMEN: * Lantus 20 units SC AM * Humalog SSI * Metformin 1000 mg PO BID * Jardiance 25 mg PO AM * HbA1c: 7.5% (12/01/23) ASSESSMENT: 01/22/24: * POD #1 s/p ISIS * Dahlia received a total of 16 units of insulin yesterday (10 units basal + 6 units bolus). All BSGs on 01/20 were below goal. * Fasting BSG this AM was also below goal, 75 mg/dL. Will decrease basal insulin and loosen carb coverage. * Held off on resuming metformin based on system downtime this am (patient labs were unavailable at that time). Could consider resuming 01/22 AM. 01/21/24: * 78 yo F admitted on 01/21/24 postoperatively following a left total hip arthroplasty. Pharmacy has been consulted to assist with inpatient glycemic management. Patient is a Type 2 diabetic as an outpatient. Please refer to outpatient regimen and most recent HbA1c above. * Preop BSG was 70 mg/dL. Postop BSG was 81 mg/dL. Ordered a T1DM diet, will follow to see if patient tolerates postoperatively. * No steroids given periop and none ordered ongoing. * Will start Novolog based on weight/stress of 3. Given BSGs, will hold off on any basal insulin for today. Reassess basal needs in the AM if patient starts eating better. PLAN FOR INPATIENT GLYCEMIC CONTROL: * Hold outpatient oral diabetes medications * Basal insulin * Lantus 5 units SC x 1 dose * Bolus insulin * NovoLog per scale ACHS or Q6hrs while NPO * Goal Range: Low 110 mg/dL - High 140 mg/dL * Correction Factor: 30 mg/dL/unit * Nutritional / Prandial insulin per carb ratio of 1 unit per 20 grams CHO consumed
[2024-01-22 18:35] LABS: Albumin Globulin Ratio 1.5 (0.9-2); Albumin Level 3.1 gm/dl (3.4-5.0); BUN Creatinine Ratio 23.2 (10-20); Bilirubin,Total 0.6 mg/dl (0.2-1.0); Calcium 8.6 mg/dl (8.6-10.3); Creatinine Clr Calc Pharmacy 31.7 ml/min; Est GFR (African American) 53.7 ml/min; Est GFR (Non-African American) 46.4 ml/min; Globulin 2.1 gm/dl (2.5-4.0); Potassium 4.1 mmol/L (3.5-5.1); Total Protein 5.2 gm/dl (6.0-8.3)
[2024-01-22 21:07] LABS: Basophils # (auto) 0.02 K/uL (0.00-0.20); Basophils % (auto) 0.3 %; Eosinophils # (auto) 0.34 K/uL (0.00-0.50); Eosinophils % (auto) 5.4 %; Hematocrit (blood only) 31.1 % (37.0-47.0); Hemoglobin 9.7 g/dl (12.0-16.0); Immature Granulocytes # (auto) 0.02 K/uL (0.01-0.20); Immature Granulocytes % (auto) 0.3 %; Lymphocytes # (auto) 1.12 K/uL (1.20-3.40); Lymphocytes % (auto) 17.9 %; Mean Corpuscular Hemoglobin 27.6 pg (25.0-34.0); Mean Corpuscular Hgb Conc 31.2 g/dL (32.0-36.0); Mean Corpuscular Volume 88.6 fL (80.0-100.0); Mean Platelet Volume 10.2 fL (9.4-12.4); Monocytes % (auto) 6.4 %; Neutrophils # (auto) 4.36 K/uL (1.40-6.50); Neutrophils % (auto) 69.7 %; Platelet Count 142 K/uL (130-400); RDW Coefficient of Variation 15.9 % (11.5-14.5); RDW Standard Deviation 51.1 fL (36.4-46.3); Red Blood Count 3.51 M/uL (4.20-5.40); White Blood Count 6.26 K/ul (4.8-10.8)
[2024-01-22] MEDS: LORazepam 1 MG TAB PO PRN (22:19)
[2024-01-23] MEDS: LANTUS PER UNIT CHARGE SC SCH (08:07)
[2024-01-23] MEDS: metFORMIN HCL 500 MG TAB PO SCH (17:03)
[2024-01-24] MEDS: LANTUS PER UNIT CHARGE SC SCH (08:07)
[2024-01-24] MEDS: ONDANSETRON INJ 2 MG/ML 2 ML VIAL IV PRN (12:05)
--- NOTE | 2024-01-24 14:27 | Pharmacy Report ---
Pharmacy Glycemic Short Note 2 - Date of Service January 24, 2024 - Glycemic Short BSG Results (Last 24 hours): 01/23/24 01/23/24 01/24/24 16:22 20:10 07:29 POC Glucose 136 H 212 H 167 H 01/24/24 11:45 POC Glucose 179 H OUTPATIENT ANTIDIABETIC REGIMEN: * Lantus 20 units SC AM * Humalog SSI * Metformin 1000 mg PO BID * Jardiance 25 mg PO AM * HbA1c: 7.5% (12/01/23) ASSESSMENT: 01/24/24: * POD #3 s/p ISIS. Metformin 1 gm PO BID was resumed yesterday at dinner. Novolog carb ratio was removed so patient only receives correctional insulin. * BSGs yesterday were [phone] mg/dl. Patient received 5 units of basal insulin and 12 units of bolus insulin. * Fasting BSG today was 167 mg/dl. Basal dose increased to 10 units today AM. * Novolog correction factor was tightened slightly this AM. 01/22/24: * POD #1 s/p ISIS * Dahlia received a total of 16 units of insulin yesterday (10 units basal + 6 units bolus). All BSGs on 01/20 were below goal. * Fasting BSG this AM was also below goal, 75 mg/dL. Will decrease basal insulin and loosen carb coverage. * Held off on resuming metformin based on system downtime this am (patient labs were unavailable at that time). Could consider resuming 01/22 AM. 01/21/24: * 78 yo F admitted on 01/21/24 postoperatively following a left total hip arthroplasty. Pharmacy has been consulted to assist with inpatient glycemic management. Patient is a Type 2 diabetic as an outpatient. Please refer to outpatient regimen and most recent HbA1c above. * Preop BSG was 70 mg/dL. Postop BSG was 81 mg/dL. Ordered a T1DM diet, will follow to see if patient tolerates postoperatively. * No steroids given periop and none ordered ongoing. * Will start Novolog based on weight/stress of 3. Given BSGs, will hold off on any basal insulin for today. Reassess basal needs in the AM if patient starts eating better. PLAN FOR INPATIENT GLYCEMIC CONTROL: * Metformin 1000 mg PO BID * Basal insulin * Lantus 10 units SQ QAM * Bolus insulin * NovoLog per scale ACHS or Q6hrs while NPO * Goal Range: Low 110 mg/dL - High 140 mg/dL * Correction Factor: 25 mg/dL/unit * Nutritional / Prandial insulin per carb ratio of 1 unit per __ grams CHO consumed
--- NOTE | 2024-01-25 09:30 | Orthopedic Progress Note ---
Date of Service January 25, 2024 Assessment & Plan (1) Status post total hip replacement, left: Plan: The patient was educated regarding today's findings. Conservative care measures were discussed. Her dressing is dry. It does not require changing at this time. Written discharge instructions will be completed once her final destination is known. Awaiting insurance authorization for rehab versus longterm. Continue with ice to the hip as needed for swelling/discomfort. Continue with PT and weightbearing as tolerated. Follow-up in the office in 10 days as scheduled. Admission and Anticipated Discharge Date Admission Date: January 21, 2024 Subjective This 78-year-old female seen today in her room. She is 4 days status post left total hip arthroplasty. She states she is doing fine. She denies any fevers or chills. She does have some hip pain. No nausea or vomiting. No chest pain or shortness of breath. She is waiting for insurance authorization to be placed at [facility] or a longterm facility. She has been working with physical therapy. No other complaints. She has already finished her breakfast. Physical Exam Physical Exam: General: Well-developed, elderly female, in no acute distress. Sitting in bed. Alert and oriented. Conversive. Skin: Warm and dry with good turgor. No rashes. Expected postsurgical ecchymosis and edema around the left hip. Her Silverlon dressing is in place. It is dry. Musculoskeletal: The patient has intact motor function of her left ankle and knee. She has difficulty with a straight leg raise. She is able to set her quad. No significant discomfort with logrolling of the hip. Neurologic: Gross sensation is intact across the left leg by soft touch. Peripheral pulses are 2+. Results & Data Vital Signs (Past 12 Hours) Vital Signs Temp Pulse Resp BP Pulse Ox O2 Del Method 01/25/24 07:50 Room Air 01/25/24 07:39 36.7 C 96 H 18 120/68 95 Room Air Laboratory Results Glucose this morning was 152.
--- NOTE | 2024-01-25 09:43 | Pharmacy Report ---
Pharmacy Glycemic Short Note 2 - Date of Service January 25, 2024 - Glycemic Short BSG Results (Last 24 hours): 01/24/24 01/24/24 01/24/24 11:45 16:20 20:19 POC Glucose 179 H 90 135 H 01/25/24 07:38 POC Glucose 152 H OUTPATIENT ANTIDIABETIC REGIMEN: * Lantus 20 units SC AM * Humalog SSI * Metformin 1000 mg PO BID * Jardiance 25 mg PO AM * HbA1c: 7.5% (12/01/23) ASSESSMENT: 01/25/24: * Dahlia received 14 units of insulin yesterday (10 were basal) * Fasting BSG this AM acceptable, continue current basal regimen. * Dinnertime BSG below goal range, will increase goal range slightly and loosen correction factor 01/24/24: * POD #3 s/p ISIS. Metformin 1 gm PO BID was resumed yesterday at dinner. Novolog carb ratio was removed so patient only receives correctional insulin. * BSGs yesterday were [phone] mg/dl. Patient received 5 units of basal insulin and 12 units of bolus insulin. * Fasting BSG today was 167 mg/dl. Basal dose increased to 10 units today AM. * Novolog correction factor was tightened slightly this AM. 01/22/24: * POD #1 s/p ISIS * Dahlia received a total of 16 units of insulin yesterday (10 units basal + 6 units bolus). All BSGs on 01/20 were below goal. * Fasting BSG this AM was also below goal, 75 mg/dL. Will decrease basal insulin and loosen carb coverage. * Held off on resuming metformin based on system downtime this am (patient labs were unavailable at that time). Could consider resuming 01/22 AM. 01/21/24: * 78 yo F admitted on 01/21/24 postoperatively following a left total hip arthroplasty. Pharmacy has been consulted to assist with inpatient glycemic management. Patient is a Type 2 diabetic as an outpatient. Please refer to outpatient regimen and most recent HbA1c above. * Preop BSG was 70 mg/dL. Postop BSG was 81 mg/dL. Ordered a T1DM diet, will follow to see if patient tolerates postoperatively. * No steroids given periop and none ordered ongoing. * Will start Novolog based on weight/stress of 3. Given BSGs, will hold off on any basal insulin for today. Reassess basal needs in the AM if patient starts eating better. PLAN FOR INPATIENT GLYCEMIC CONTROL: * Metformin 1000 mg PO BID * Basal insulin * Lantus 10 units SQ QAM * Bolus insulin * NovoLog per scale ACHS or Q6hrs while NPO * Goal Range: Low 120 mg/dL - High 160 mg/dL * Correction Factor: 30 mg/dL/unit * Nutritional / Prandial insulin per carb ratio of 1 unit per __ grams CHO consumed
[2024-01-26] MEDS: ONDANSETRON 4 MG OD TAB PO STA (08:57)
--- NOTE | 2024-01-26 09:19 | Orthopedic Progress Note ---
Date of Service January 26, 2024 Assessment & Plan (1) Status post total hip replacement, left: Plan: The patient was educated regarding today's findings. Conservative care measures were discussed. She has been ambulatory in the hallway with therapy. She plans on participating again today. She is awaiting insurance determination for rehab versus [facility]. Continue weightbearing as tolerated. Continue anticoagulation. Admission and Anticipated Discharge Date Admission Date: January 25, 2024 Subjective This 78-year-old female is seen today in her room. She is now 5 days status post left total hip arthroplasty. She states she is frustrated with her insurance. She thought she would already be at a rehab facility starting her recovery. She is disappointed that she has not been transferred to rehab yet. She states her pain is about the same as yesterday. Pain is worse with movement. She did participate in physical therapy yesterday. No chest pain, shortness of breath, nausea, or vomiting. No additional complaints. Physical Exam Physical Exam: General: Well-developed, well-nourished, elderly female, in no acute distress. Sitting in bed. Alert and oriented. She has finished her breakfast. Skin: Warm and dry with good turgor. No rashes. Mild ecchymosis and edema at her left buttock. Silverlon dressing is in place. It is dry. No erythema. Musculoskeletal: The patient has intact motor function for the toes, ankle, and knee. She has been able to perform heel slides in bed. Minimal discomfort with logrolling of the left hip. She cannot perform straight leg raise today. Neurologic: Gross sensation is intact across the left leg by soft touch. Peripheral pulses are 2+. Results & Data Vital Signs (Past 12 Hours) Vital Signs Temp Pulse Resp BP Pulse Ox O2 Del Method 01/26/24 07:35 36.7 C 97 H 16 149/81 H 93 Room Air 01/25/24 21:28 36.9 C 91 H 18 110/67 96 Room Air Laboratory Results Glucose this morning is 100.
[2024-01-27] MEDS: ONDANSETRON 4 MG OD TAB PO PRN (02:47)
--- NOTE | 2024-01-27 10:10 | Orthopedic Progress Note ---
Date of Service January 27, 2024 Assessment & Plan (1) Status post total hip replacement, left: Plan: Postop day 6-status post left total hip arthroplasty with Dr. Rick Continue PT and OT while inpatient. Continue regular diet. Continue use of a walker to assist with ambulation. Posterior hip precautions at all times. Abduction pillow when in bed. Standard pillow between knees when sitting. LASHELL stockings patient swelling control extremity. Continue SCDs. Continue aspirin for DVT prophylaxis. Follow up next week as scheduled for post operative appointment. Call [phone] with any questions or concerns. Okay from orthopedic standpoint for discharge when placment arranged. Admission and Anticipated Discharge Date Admission Date: January 25, 2024 Subjective Patient is doing well. She was nauseated all last night she is frustrated. She is a frustrated with her insurance does not stand "they cannot meet her needs". She is awaiting placement and discussion caser see where she is going next. She is that she is feeling similar today. She would like to get to the next of her recovery. Physical Exam Musculoskeletal: Exam of her left lower extremity: Full ankle range of motion with no evidence of nerve palsy. Distal pulses are 1+. Sensation is normal throughout the left foot and ankle. She has mild edema into the left lower leg. Calf is supple and nontender with palpation. She tolerates gentle range of motion of the left knee to about 90 degrees. Vern logrolling of the left leg. She is able to independently straight leg raise about an inch off of the bed. Her left hip dressings are in place. A Silverlon is in place. It is completely dry and non- spoiled. It was left in place today. No significant edema of her thigh. No underlying seroma or hematoma. Area surrounding the incision are nontender to palpation. Results & Data Vital Signs (Past 12 Hours) Vital Signs Temp Pulse Resp BP Pulse Ox O2 Del Method 01/27/24 07:40 36.6 C 100 H 18 160/80 H 95 Room Air Laboratory Results 01/27/24 01/26/24 01/26/24 Range/Units 07:42 20:46 16:39 POC Glucose 114 H 125 H 103 H (70-99) mg/dl 01/26/24 Range/Units 11:23 POC Glucose 137 H (70-99) mg/dl
[2024-01-27] MEDS: CARBOHYDRATES FOR HYPOGLYCEMIA PO PRN (11:43)
--- NOTE | 2024-01-28 08:58 | Orthopedic Progress Note ---
Date of Service January 28, 2024 Assessment & Plan (1) Status post total hip replacement, left: Plan: The patient was educated regarding today's findings. Her dressing was changed today by me. She was seen in conjunction with Dr. Rick, who also evaluated the patient. She will be discharged to a long-term facility today around 3 PM. Written discharge instructions have been completed. Prescriptions for oxycodone and aspirin 81 mg have been sent. Follow-up with me in the office in 1 week on February 04 at 3:30 PM for Zipline removal. Continue weightbearing as tolerated using her walker. Apply ice frequently to the hip to reduce pain and swelling. Continue sleeping with a pillow between her knees. Maintain total hip precautions. Admission and Anticipated Discharge Date Admission Date: January 25, 2024 Subjective This 78-year-old female seen today in her room. She is 7 days status post left total hip arthroplasty. She states she was nauseated overnight and vomited on herself. She has no nausea at this time. She was able to eat her breakfast this morning without difficulty. She is hoping to be discharged today. No new complaints. She is having some pain in her hip today. It is radiating to her left knee. She took oxycodone this morning around 4 AM with some improvement. Physical Exam Physical Exam: General: Well-developed, well-nourished, elderly female, in no acute distress. Obvious discomfort. Laying in bed. Alert and oriented. Skin: Warm and dry with good turgor. No rashes. Her Silverlon dressing is in place on the left hip. Upon removal, the wound is healing nicely. Zipline is in place. Expected postoperative ecchymosis. Minimal edema. No erythema. No active drainage. Musculoskeletal: Left hip evaluation reveals equal leg lengths. She has intact motor function of the left leg for flexion and extension of the knee and ankle. She complains of discomfort at the hip with logrolling as well as active and passive flexion and extension of the hip. Neurologic: Gross sensation is intact across the left leg by soft touch. Peripheral pulses are 2+. Results & Data Vital Signs (Past 12 Hours) Vital Signs Temp Pulse Resp BP BP Pulse Ox O2 Del Method 01/28/24 07:38 36.8 C 90 16 147/76 H 94 Room Air 01/27/24 21:03 36.9 C 94 H 12 132/73 93 Room Air Laboratory Results Glucose this morning was 95.
== END 2024-01-28 14:52 | DRG 470 ==
LOC: ASU 06:52 → 3E 06:52